=== PATIENT | female | born 1965 | race Two or more races ===

== ENCOUNTER 2019-03-06 17:03 | Emergency (ER) | payer BC ==
--- NOTE | 2019-03-06 17:21 | ER Document Report ---
ED Medical Screen (RME) - General Chief Complaint: Passed Out Prior to Arrival Stated Complaint: BLOOD PRESSURE CONCERN,SYNCOPE Time Seen by Provider: 03/06/19 17:16 Mode of Arrival: Ambulatory Information source: Patient Notes: 53-year-old female presented to ED for complaint of low blood pressure at home and passing out around 4 PM today. States she fell in the living room crawled to the bathroom and fell in the bathroom and called her she called her at 426. She states she normally has high blood pressure and takes blood pressure medication and her blood pressure on the machine at home said 78/43. In the emergency room her blood pressure was 100/62. Patient states she smokes a pack a day drinks several beers a day and does not use any drugs. She does have a history of high blood pressure cholesterol states she hit her ear and her left arm when she passed out. Does have a laceration to the left ear and abrasion to the left arm. She states she does not know when her last tetanus immunization was. She states she is on blood pressure and cholesterol medications but she does not know the name of them and did not bring them with her. I have greeted and performed a rapid initial assessment of this patient. A comprehensive ED assessment and evaluation of the patient, analysis of test results and completion of medical decision making process will be conducted by an additional ED providers. - Related Data Allergies/Adverse Reactions: No Known Allergies Allergy (Verified 03/06/19 17:15) Physical Exam - Vital signs Vitals: Temp Pulse Resp BP Pulse Ox 98 F 105 H 18 100/62 100 03/06/19 17:07 03/06/19 17:07 03/06/19 17:07 03/06/19 17:07 03/06/19 17:07 Course - Vital Signs Vital signs: Temp Pulse Resp BP Pulse Ox 98 F 105 H 18 100/62 100 03/06/19 17:07 03/06/19 17:07 03/06/19 17:07 03/06/19 17:07 03/06/19 17:07
[2019-03-06 18:07] LABS: ABSOLUTE EOSINOPHILS # (AUTO) 0.1 10^3/uL (0.0-0.6); ABSOLUTE LYMPHOCYTES (AUTO) 1.3 10^3/uL (0.5-4.7); ABSOLUTE MONOCYTES (AUTO) 0.8 10^3/uL (0.1-1.4); ABSOLUTE NEUT (AUTO) 6.7 10^3/uL (1.7-8.2); BASOPHILS % (AUTO) 0.4 % (0-2); EOSINOPHILS % (AUTO) 1.4 % (0-6); HEMATOCRIT 28.9 % (36.0-47.0); LYMPHOCYTES % (AUTO) 14.8 % (13-45); MEAN CORPUSCULAR HEMOGLOBIN 34.7 pg (27.0-33.4); MEAN CORPUSCULAR HGB CONC 34.5 g/dL (32.0-36.0); MEAN CORPUSCULAR VOLUME 101 fl (80-97); PLATELET COUNT 259 10^3/uL (150-450); RED BLOOD COUNT 2.87 10^6/uL (3.72-5.28); RED CELL DISTRIBUTION WIDTH 12.8 % (11.5-14.0); SEGMENTED NEUTROPHILS % (AUTO) 74.4 % (42-78); TOTAL CELLS COUNTED % (AUTO) 100 %
--- NOTE | 2019-03-06 18:15 | RADIOLOGY REPORT (SQ) ---
EXAM DESCRIPTION: CHEST 2 VIEWS COMPLETED DATE/TIME: 03/06/2019 6:02 pm REASON FOR STUDY: syncopal episode COMPARISON: None. EXAM PARAMETERS: NUMBER OF VIEWS: two views TECHNIQUE: Digital Frontal and Lateral radiographic views of the chest acquired. RADIATION DOSE: NA LIMITATIONS: none FINDINGS: LUNGS AND PLEURA: No opacities, masses or pneumothorax. No pleural effusion. MEDIASTINUM AND HILAR STRUCTURES: No masses or contour abnormalities. HEART AND VASCULAR STRUCTURES: Heart normal size. No evidence for failure. BONES: No acute findings. HARDWARE: None in the chest. OTHER: No other significant finding. IMPRESSION: NO ACUTE RADIOGRAPHIC FINDING IN THE CHEST. TECHNICAL DOCUMENTATION: JOB ID: [id number] [employer]- All Rights Reserved Reading location - IP/workstation name: [email or web address]
[2019-03-06 18:23] LABS: ALBUMIN 3.7 g/dL (3.5-5.0); ALKALINE PHOSPHATASE 62 U/L (38-126); ANION GAP 10 (5-19); ASPARTATE AMINO TRANSFERASE 17 U/L (14-36); BILIRUBIN,DIRECT 0.2 mg/dL (0.0-0.4); BILIRUBIN,TOTAL 0.5 mg/dL (0.2-1.3); BLOOD UREA NITROGEN 55 mg/dL (7-20); CALCIUM 9.2 mg/dL (8.4-10.2); CARBON DIOXIDE 22 mmol/L (22-30); CHLORIDE 105 mmol/L (98-107); GLUCOSE 93 mg/dL (75-110); POTASSIUM 4.2 mmol/L (3.6-5.0); TOTAL PROTEIN 6.2 g/dL (6.3-8.2)
[2019-03-06 18:24] LABS: ALCOHOL < 10 mg/dL (NONE DETECTED)
--- NOTE | 2019-03-06 18:51 | RADIOLOGY REPORT (SQ) ---
EXAM DESCRIPTION: CT HEAD WITHOUT COMPLETED DATE/TIME: 03/06/2019 6:40 pm REASON FOR STUDY: syncope hit left side of head with LOC COMPARISON: None. TECHNIQUE: Axial images acquired through the brain without intravenous contrast. Images reviewed wi th bone, brain and subdural windows. Images stored on PACS. All CT scanners at this facility use dose modulation, iterative reconstruction, and/or weight based d osing when appropriate to reduce radiation dose to as low as reasonably achievable (ALARA). [facility]: Dose Right [facility]: CareDose [facility]: Dose Right [facility]: Teradose 4D [facility]: Smart [employer] RADIATION DOSE: CT Rad equipment meets quality standard of care and radiation dose reduction techniq ues were employed. CTDIvol: 53.2 mGy. DLP: 1017 mGy-cm. mGy. LIMITATIONS: None. FINDINGS: VENTRICLES: Normal size and contour. CEREBRUM: No masses. No hemorrhage. No midline shift. No evidence for acute infarction. Normal gra y/white matter differentiation. No areas of low density in the white matter. CEREBELLUM: No masses. No hemorrhage. No alteration of density. No evidence for acute infarction. EXTRAAXIAL SPACES: No fluid collections. No masses. ORBITS AND GLOBE: No intra- or extraconal masses. Normal contour of globe without masses. CALVARIUM: No fracture. PARANASAL SINUSES: No fluid or mucosal thickening. SOFT TISSUES: No mass or hematoma. OTHER: No other significant finding. IMPRESSION: NORMAL BRAIN CT WITHOUT CONTRAST. EVIDENCE OF ACUTE STROKE: NO. COMMENT: Quality ID # [id number]: Final reports with documentation of one or more dose reduction techniques (e.g., Automated exposure control, adjustment of the mA and/or kV according to patient size, use of iterative reconstruction technique) TECHNICAL DOCUMENTATION: JOB ID: [id number] [employer]- All Rights Reserved Reading location - IP/workstation name: [email or web address]
[2019-03-06] MEDS ORDERED: DIPH/PERTUSS(ACELL)/TETANUS VAC/PF 0.5 ML SYR (>=10YO) IM ONE (19:08)
[2019-03-06] MEDS ORDERED: NORMAL SALINE 1000 ML 1,000 ML IV ONE (19:08)
--- NOTE | 2019-03-06 19:11 | ER Document Report ---
ED General - General Chief Complaint: Passed Out Prior to Arrival Stated Complaint: BLOOD PRESSURE CONCERN,SYNCOPE Time Seen by Provider: 03/06/19 17:16 Mode of Arrival: Ambulatory - HPI Notes: Patient is a 53-year-old female with a history of hypertension and hyperlipidemia, who presents to the emergency department for evaluation of syncope. The patient states she was sitting in her living room after vacuuming her home. She got up, her vision went blurry. She went to her kitchen to get some water, where she had a syncopal episode. She fell down against her dog's water bowl, struck her left arm as well. She thinks she was only down on the ground for a few moments. She went to the bathroom to look at her ear, had another small syncopal episode. The patient states she is feeling improved now. She has a history of hypertension, states her blood pressure normally runs high. She denies any recent fevers or chills. No nausea or vomiting, although she states yesterday she felt slightly nauseated and admits to decreased p.o. intake. She denies any pain of any sort. No melena or hematochezia. Not coughing or short of breath. She states she is unsure of her tetanus status. - Related Data Allergies/Adverse Reactions: No Known Allergies Allergy (Verified 03/06/19 17:15) Home Medications: Gemfibrozil 600 mg twice daily, lisinopril/HCTZ 20 mg / 12.5 mg 1 tablet daily Past Medical History - General Information source: Patient - Social History Smoking Status: Current Every Day Smoker Frequency of alcohol use: Daily, only "a few" drinks Family History: DM, Hypertension Patient has suicidal ideation: No Patient has homicidal ideation: No - Past Medical History Cardiac Medical History: Reports: Hx Hypercholesterolemia, Hx Hypertension Review of Systems - Review of Systems Constitutional: No symptoms reported EENT: No symptoms reported Cardiovascular: See HPI Respiratory: No symptoms reported Gastrointestinal: See HPI Genitourinary: No symptoms reported Musculoskeletal: See HPI Skin: See HPI Neurological/Psychological: See HPI Physical Exam - Vital signs Vitals: Temp Pulse Resp BP Pulse Ox 98 F 105 H 18 100/62 100 03/06/19 17:07 03/06/19 17:07 03/06/19 17:07 03/06/19 17:07 03/06/19 17:07 - Notes Notes: Vital signs reviewed, please refer to chart. Head is normocephalic. Pupils equal round, reactive to light. No facial bone tenderness. Patient has a 2 cm superficial linear laceration to the left pinna. Examination of the C-spine yields no midline tenderness or step-off. No paraspinal musculature tenderness is appreciated. Heart is regular rate and rhythm. Lungs are clear to auscultation bilaterally. Abdomen is soft, nontender, normoactive bowel sounds throughout. Extremities without cyanosis, clubbing. She does have some superficial tenderness and ecchymosis to the left volar forearm, neurovascularly intact distally. Posterior calves are nontender. Peripheral pulses are equal. Skin is warm and dry. Patient is awake, alert, oriented x3. Cranial nerves II - XII are grossly intact without focal neurological deficits. Strength is plus 5 out of 5 bilateral upper and lower extremities. Sensation is intact. Reflexes symmetrical. Intact [id number], rapid alternating movements, [id number]. Course - Re-evaluation Re-evalutation: 03/06/19 21:12 Patient presents emergency department for evaluation of a syncopal episode. It certainly sounds as if this was vasovagal and related to low blood pressure. Patient has a history of high blood pressure, and I am unclear as to what the etiology of her borderline blood pressure is at this time. I did obtain chest x-ray, urinalysis, cultures. Orthostatics after fluids showed a small drop in systolic blood pressure, but only 11 points. Patient did admit to some decreased p.o. intake yesterday, and that is perhaps the etiology. She is told that she is to stop her lisinopril/HCTZ. She is to stay hydrated. She is to get up slowly. She is to follow-up with her primary care physician on Monday. She will be contacted if any of her cultures become positive. She is also advised to abstain from alcohol in the meantime. She voiced understanding to all of these pieces of advice. She is to return to the ED with worsening or new concerning symptoms of any sort. - Vital Signs Vital signs: Temp Pulse Resp BP Pulse Ox 98 F 95 24 H 93/63 L 100 03/06/19 17:07 03/06/19 20:48 03/06/19 21:01 03/06/19 21:00 03/06/19 21:01 - Laboratory Result Diagrams: 03/06/19 17:47 03/06/19 17:47 Laboratory results interpreted by me: 03/06/19 03/06/19 17:47 17:47 RBC 2.87 L Hgb 10.0 L Hct 28.9 L MCV 101 H MCH 34.7 H Sodium 136.8 L BUN 55 H Total Protein 6.2 L - Diagnostic Test Radiology reviewed: Image reviewed, Reports reviewed Radiology results interpreted by me: 03/06/19 21:13 Chest X-Ray 03/06/19 17:25 IMPRESSION: NO ACUTE RADIOGRAPHIC FINDING IN THE CHEST. Head CT 03/06/19 17:52 IMPRESSION: NORMAL BRAIN CT WITHOUT CONTRAST. EVIDENCE OF ACUTE STROKE: NO. - EKG Interpretation by Me Additional EKG results interpreted by me: 03/06/19 21:13 Sinus tachycardia with a rate of 107 bpm. Normal axis and intervals, no acute ST changes concerning for ischemia or infarction. Discharge - Discharge Clinical Impression: Syncope and collapse, Laceration of left ear region, Contusion of left forearm Condition: Stable Disposition: HOME, SELF-CARE Instructions: Antibiotic Ointment Protection ([facility]), Laceration Care ([facility]), Soap Cleansing ([facility]), Tetanus Immunization Given ([facility]), Syncopal Episode ([facility]) Additional Instructions: Please do not take your lisinopril/HCTZ until you follow-up with your primary care provider. Rest, stay well-hydrated. Continue to check your blood pressure at least once daily for the next several days. Get up slowly. Stay well- hydrated. Abstain from drinking alcohol. Keep the wound on your ear clean with soap and water, watching for signs of infection. Follow-up with your primary care provider on Monday. If you develop worsening or new concerning symptoms of any sort, please return immediately to the emergency department for reevaluation.
[2019-03-06 19:17] LABS: APPEARANCE,URINE CLEAR; BILIRUBIN,URINE NEGATIVE (NEGATIVE); COLOR,URINE STRAW; GLUCOSE, URINE NEGATIVE (NEGATIVE); KETONES,URINE NEGATIVE (NEGATIVE); PROTEIN,URINE NEGATIVE (NEGATIVE); URINE SPECIFIC GRAVITY 1.012; UROBILINOGEN,URINE NEGATIVE mg/dL (<2.0)
[2019-03-06 19:24] LABS: URINE AMPHETAMINES SCREEN NEGATIVE; URINE BARBITURATES SCREEN NEGATIVE; URINE BENZODIAZEPINES SCREEN NEGATIVE; URINE COCAINE SCREEN NEGATIVE; URINE MARIJUANA (THC) SCREEN NEGATIVE; URINE METHADONE SCREEN NEGATIVE; URINE PHENCYCLIDINE SCREEN NEGATIVE
[2019-03-06 21:11] VITALS: BP 93/63
--- NOTE | 2019-03-06 23:40 | EKG REPORT ---
SEVERITY:- BORDERLINE ECG - SINUS TACHYCARDIA WITH IRREGULAR RATE [id number] : Confirmed by: Bart Amaral 06-Mar-2019 23:39:45
== END 2019-03-06 21:31 | disposition home or self-care (01) ==
LOC: ER 17:03
DX: R55 Syncope and collapse (principal); S01.312A Laceration without foreign body of left ear, initial encounter; S50.12XA Contusion of left forearm, initial encounter; W19.XXXA Unspecified fall, initial encounter; W22.8XXA Striking against or struck by other objects, initial encounter; Y93.89 Activity, other specified; Y92.000 Kitchen of unspecified non-institutional (private) residence as the place of occurrence of the external cause; R00.0 Tachycardia, unspecified; I10 Essential (primary) hypertension; E78.00 Pure hypercholesterolemia, unspecified; F17.200 Nicotine dependence, unspecified, uncomplicated; Z79.899 Other long term (current) drug therapy
CPT/HCPCS: 93005; 99284; 96360; 90471; 36415; 87040; 80307 ×2; 85025; 80053; 81001; 84484; 71046; 70450; 90715; 93010; J7030